=== PATIENT | male | born 1970 | race Caucasian/White ===

== ENCOUNTER 2018-09-07 07:41 | Emergency (ER) | payer OTHER ==
[~2018-09-07] VITALS: Ht 180.3 cm; Wt 101.4 kg
[~2018-09-07 07:41] MED LIST: NO HOME MEDICATIONS
[2018-09-07 07:46] VITALS: TEMP 98.7
[2018-09-07 08:32] LABS: BASO % 0.3 % (0.0-2.0); EOS # 0.2 (0.0-0.7); EOS % 1.4 % (0-4.0); GRAN # 10.6 (1.4-6.5); GRAN % 84.3 % (42.2-75.2); HEMATOCRIT 46.6 % (42.0-52.0); HEMOGLOBIN 15.5 g/dl (13.5-18.0); LYMPH # 0.8 (1.2-3.4); LYMPH % 6.7 % (20.0-51.0); MEAN CELL VOLUME 89 fl (80.0-100.0); MEAN CORPUSCULAR HEMOGLOBIN 30 pg (27.0-31.0); MEAN CORPUSCULAR HGB CONC 33 g/dl (33.0-37.0); MEAN PLATELET VOLUME 11.1 fl (7.4-10.4); MONO # 0.9 (0.1-0.6); MONO % 6.8 % (1.7-9.3); PLATELET COUNT 259 K/mm3 (130-400); RED BLOOD COUNT 5.23 M/mm3 (4.20-5.60); REDCELL DISTRIBUTION WIDTH-CV 12.8 % (11.5-14.5)
[2018-09-07 08:40] LABS: ALBUMIN 4.7 gm/dL (3.5-5.0); C-REACTIVE PROTEIN 0.9 mg/dL (0.0-0.9); CALCIUM 9.8 mg/dL (8.4-10.2); CREATININE, serum 0.86 mg/dL (0.66-1.25)
[2018-09-07 08:51] LABS: COLLECTION METHOD CLEAN CATCH
[2018-09-07 08:59] LABS: MUCOUS Present /lpf; PH 5 (5-8); SQUAMOUS EPITHELIAL 0-2 /hpf; URINE APPEARANCE Clear; URINE BACTERIA None Seen /hpf; URINE BILIRUBIN Negative (NEGATIVE); URINE BLOOD Negative (NEGATIVE); URINE COLOR Amber; URINE GLUCOSE Negative (NEGATIVE); URINE KETONE Trace (NEGATIVE); URINE LEUKOCYTE ESTERASE Negative (NEGATIVE); URINE NITRATE Negative (NEGATIVE); URINE PROTEIN(semi-quant) Negative (NEGATIVE); URINE RBC 0-2 /hpf; URINE UROBILINOGEN >=4.0 mg/dL (NEGATIVE)
[2018-09-07 11:10] VITALS: BP 132/95; PULSE 80
== END 2018-09-07 11:11 | disposition short-term general hospital (02) ==
LOC: COL.ER 07:41
PROVIDERS: Emergency Medicine
DX: K85.90 Acute pancreatitis without necrosis or infection, unspecified (principal)
CPT/HCPCS: J1170; J2405; J2543; J2550; J3010; J7030; J7120

== ENCOUNTER 2019-10-29 03:39 | Emergency (ER) | payer OTHER ==
[~2019-10-29] VITALS: Ht 180.3 cm; Wt 97.7 kg
[2019-10-29 04:36] LABS: HEMATOCRIT 40.2 % (42.0-52.0); HEMOGLOBIN 13.5 g/dl (13.5-18.0); MEAN CELL VOLUME 88 fl (80.0-100.0); MEAN CORPUSCULAR HEMOGLOBIN 30 pg (27.0-31.0); MEAN CORPUSCULAR HGB CONC 34 g/dl (33.0-37.0); PLATELET COUNT 167 K/mm3 (130-400); RED BLOOD COUNT 4.56 M/mm3 (4.20-5.60); REDCELL DISTRIBUTION WIDTH-CV 12.8 % (11.5-14.5)
[2019-10-29 04:46] LABS: ALBUMIN 4.2 gm/dL (3.5-5.0); BILIRUBIN,TOTAL 0.8 mg/dL (0.0-1.0); C-REACTIVE PROTEIN 7.5 mg/dL (0.0-0.9); CALCIUM 8.7 mg/dL (8.4-10.2); CREATININE, serum 0.83 (0.66-1.25); POTASSIUM 3.5 mmol/L (3.4-5.0)
[2019-10-29 05:02] LABS: BAND 29 % (0-10); LYMPHOCYTE 8 % (20.0-51.0); NEUTROPHILS 61 % (42.0-75.2); PLATELET ESTIMATE NORMAL (NORMAL)
[2019-10-29 06:11] VITALS: TEMP 99.3
[2019-10-29 07:01] VITALS: BP 106/77
[2019-10-29] MEDS ORDERED: DOXYCYCLINE 10100 MG PO (07:14)
[2019-10-29] MEDS ORDERED: ZOFRAN ODT4 MG PO (07:15)
[2019-10-29 07:45] VITALS: PULSE 93
== END 2019-10-29 07:45 | disposition home or self-care (01) ==
LOC: COL.ER 03:39
PROVIDERS: Emergency Medicine
DX: J01.90 Acute sinusitis, unspecified (principal); R11.10 Vomiting, unspecified
CPT/HCPCS: J2405; J7030